=== PATIENT | female | born 1930 | race Caucasian/White ===

== ENCOUNTER 2017-06-04 12:21 | Emergency (ER) | payer OTHER ==
[~2017-06-04] VITALS: Ht 165.1 cm; Wt 68.0 kg
--- NOTE | ~2017-06-04 | EKG ---
[facility] [address] [place] [address] ELECTROCARDIOGRAM REPORT Name: CRISPIN PAK Room #: [facility]P [facility] [id number] Admission: 06/04/17 Attend Phys: Discharge: 06/04/17 Date of : 32 Report #: [id number] THIS REPORT FOR: //name// [facility] ED Test Date: 2017-06-04 Test Time: 12:43:08 Pat Name: CRISPIN PAK Department: Room: Gender: F Cryptologic Support Specialist: BRANT : [id number] Requested By: Kimani Webster Order Number: [id number] MD: Chepe Vela Measurements Intervals [place] Rate: 63 P: 116 NH: 210 QRS: 38 QRSD: 138 T: 15 QT: 464 QTc: 476 Interpretive Statements Sinus rhythm with first-degree AV block Right bundle branch block Compared to ECG 07/03/1998 12:02:00 Right bundle-branch block now present Sinus bradycardia no longer present Electronically Signed On 06-04-2017 16:07:11 [employer]ER TE[employer]ER by Chepe Vela [email or web address] <ELECTRONICALLY SIGNED> By: Chepe Vela MD, [facility] 06/04/17 1607 [id number] Chepe Vela MD, [facility] /EPI
[2017-06-04 12:41] LABS: URINE BILIRUBIN NEGATIVE (Negative); URINE BLOOD NEGATIVE (Negative); URINE CLARITY CLEAR; URINE COLOR YELLOW; URINE GLUCOSE-RANDOM* NEGATIVE (Negative); URINE KETONES NEGATIVE (Negative); URINE LEUKOCYTES-REFLEX 1+ (Negative); URINE NITRITE-REFLEX NEGATIVE (Negative); URINE PROTEIN (DIPSTICK) NEGATIVE (Negative); URINE SPECIFIC GRAVITY <= 1.005 (1.005-1.035); URINE UROBILINOGEN 0.2 E.U./dl (0.2-1.0)
[2017-06-04 12:50] LABS: BACTERIA-REFLEX 1-9 Few /HPF (None Seen); CASTS None Seen /LPF (None Seen); CRYSTALS None Seen /LPF (None Seen); SQUAMOUS None Seen /LPF (0-3); URINE RBC None Seen /HPF (0-2); URINE WBC-REFLEX 6-15 Few /HPF (0-5)
[2017-06-04 13:09] LABS: ABSOLUTE NEUTROPHILS 3.8 thou/uL (1.4-8.2); BASOPHILS 0.7 % (0.0-2.0); EOSINOPHILS 1.9 % (0.0-3.0); HEMATOCRIT 36.6 % (37.0-47.0); HEMOGLOBIN 12.4 gm/dL (12.0-15.0); LYMPHOCYTES 22.4 % (24.0-44.0); MCH 28.4 pg (26.0-34.0); MCHC 33.8 g/dL (28.0-37.0); MCV 84.1 fL (80.0-100.0); MONOCYTES 11.3 % (1.0-8.0); PLATELET COUNT 271 thou/uL (150-400); POLYS 63.7 % (36.0-66.0); RBC 4.35 mil/uL (4.20-5.00); RDW 14.7 % (10.5-14.5)
[2017-06-04 13:17] LABS: ANION GAP 9 mmol/L (7-16); BUN 23 mg/dL (7-18); CALCIUM 8.8 mg/dL (8.5-10.1); CHLORIDE 106 mmol/L (98-107); CO2 26 mmol/L (21-32); CREATININE 0.8 mg/dL (0.6-1.0); GLUCOSE 132 mg/dL (74-106); POTASSIUM 4.1 mmol/L (3.5-5.1); SODIUM 141 mmol/L (136-145)
[2017-06-04 13:26] LABS: TROPONIN-I < 0.04 ng/mL (<0.06)
== END 2017-06-04 15:02 | disposition home or self-care (01) ==
LOC: ER 12:21
PROVIDERS: Physician Assistant
DX: R55 Syncope and collapse (principal); N39.0 Urinary tract infection, site not specified; I10 Essential (primary) hypertension